=== PATIENT | male | born 1930 | race African-American/Black ===

== ENCOUNTER 2017-10-13 15:02 | Inpatient (IN) | payer MEDICARE, OTHER ==
[~2017-10-13] VITALS: Ht 180.3 cm; Wt 49.4 kg
[~2017-10-13 15:02] MED LIST: DIGO250T4 PO; WARF2TAB57 PO
[2017-10-13 16:10] LABS: BASOPHILS % 0.5 % (0.0-2.0); EOSINOPHILS % 0.5 % (0.0-5.0); HEMATOCRIT. 33.6 % (42.0-52.0); HEMOGLOBIN. 11.4 g/dL (14.0-18.0); MEAN CORPUSCULAR HEMOGLOBIN 26.8 pg (28.0-32.0); MEAN CORPUSCULAR VOLUME 79.1 fL (80.0-94.0); MEAN PLATELET VOLUME 7.1 fl (7.4-10.4); PLATELET 323 x1000/uL (130-400); RED BLOOD CELL COUNT 4.25 mill/uL (4.7-6.1); RED CELL DISTRIBUTION WIDTH 15.4 % (11.6-14.6)
[2017-10-13 16:21] LABS: INR 1.1; PROTHROMBIN TIME 11.7 sec (9.4-11.6)
[2017-10-13 16:27] LABS: CARBON DIOXIDE 26 mEq/L (21-32); CHLORIDE 103 mEq/L (98-107); TROPONIN I 0.08 ng/mL (0.00-0.04)
[2017-10-13 16:29] LABS: D-DIMER 10.25 mg/L FEU (<0.50)
[2017-10-13 17:12] LABS: BG BASE EXCESS -2.8 mmol/L (-2.0-2.0); BG CARBOXYHEMOGLOBIN 0.3 % (0.5-1.5); BG FRACTION INSPIRED OXYGEN 21; BG HCO3 ACT 20.7 mmol/L (22.0-26.0); BG METHEMOGLOBIN 0.2 % (0.0-1.5); BG OXYHEMOGLOBIN 96.5 % (94.0-97.0); BG PCO2 31.6 mmHg (35.0-45.0); BG PH 7.435 (7.350-7.450); BG PO2 93.5 mmHg (75.0-100.0); BG SAMPLE SITE RIGHT RADIAL; BG TOTAL HEMOGLOBIN 10.5 g/dL (12.0-18.0); BG VENT MODE ROOM AIR
[2017-10-13] MEDS ORDERED: ASPIRIN 325MG TABLET PO ONE (19:30)
[2017-10-13] MEDS ORDERED: DILTIAZEM HCL 5MG/ML 5ML VIAL IV ONE (20:30)
[2017-10-13] MEDS ORDERED: ACETAMINOPHEN 325MG TABLET PO PRN (21:00)
[2017-10-13] MEDS ORDERED: MORPHINE SULFATE 2 MG/ML CPJ (NOT FOR IM USE) IV PRN (21:00)
[2017-10-13] MEDS ORDERED: CLONIDINE 0.1MG TABLET PO PRN (21:00)
[2017-10-13] MEDS ORDERED: NA PHOS,M-B/NA PHOS,DI-BA ENEMA 118ML PR PRN (21:00)
[2017-10-13] MEDS ORDERED: MAGNESIUM/ALUMINUM HYDROXIDE/SIMETHICONE 30ML UDC PO PRN (21:00)
[2017-10-13] MEDS ORDERED: ONDANSETRON HCL 4MG/2ML VIAL IV PRN (21:00)
[2017-10-13] MEDS ORDERED: IPRATROPIUM/ALBUTEROL 0.5-3(2.5)MG/3ML NEB INH PRN (21:00)
[2017-10-13] MEDS ORDERED: ENOXAPARIN 40MG/0.4ML SYR SUBCUT SCH (21:00)
[2017-10-13] MEDS ORDERED: NITROGLYCERIN 0.4MG TABLET SL SL PRN (21:00)
[2017-10-13] MEDS ORDERED: TRAMADOL 50MG TABLET PO PRN (21:00)
[2017-10-13] MEDS ORDERED: DOCUSATE SODIUM 100MG CAPSULE PO PRN (21:00)
[2017-10-13] MEDS: ENOXAPARIN 80MG/0.8ML SYR SUBCUT SCH (23:32)
[2017-10-13] MEDS: ZOLPIDEM TARTRATE 5MG TABLET PO PRN (23:33)
[2017-10-13] MEDS: DILTIAZEM HCL 60MG TABLET PO SCH (23:33)
[2017-10-13] MEDS: FAMOTIDINE 20MG/2ML VIAL IV SCH (23:33)
[2017-10-13] MEDS: GUAIFENESIN 200MG/10ML SUGAR FREE UDC PO PRN (23:40)
[2017-10-14 00:23] VITALS: BP 122/88
[2017-10-14 01:36] LABS: CREATINE KINASE MB FRACTION 4.1 ng/mL (0.5-3.6); TROPONIN I 0.07 ng/mL (0.00-0.04)
[2017-10-14 04:00] VITALS: BP 116/81
[2017-10-14] MEDS: DILTIAZEM HCL 60MG TABLET PO SCH ×4 (06:26→23:43)
[2017-10-14 07:35] LABS: CREATINE KINASE MB FRACTION 4.1 ng/mL (0.5-3.6); TROPONIN I 0.09 ng/mL (0.00-0.04)
[2017-10-14 08:00] VITALS: BP 113/74
[2017-10-14] MEDS: FAMOTIDINE 20MG/2ML VIAL IV SCH (09:06)
[2017-10-14] MEDS: ASPIRIN 325MG EC TABLET PO SCH (09:07)
[2017-10-14 12:00] VITALS: BP 113/74
[2017-10-14 16:00] VITALS: BP 108/69
[2017-10-14] MEDS ORDERED: DIGOXIN 125MCG TABLET PO SCH (18:00)
[2017-10-14 20:00] VITALS: BP 112/73
[2017-10-14] MEDS: ENOXAPARIN 80MG/0.8ML SYR SUBCUT SCH (23:42)
[2017-10-14] MEDS: ZOLPIDEM TARTRATE 5MG TABLET PO PRN (23:43)
[2017-10-15] VITALS (7 sets, daily range): BP systolic 90–149; BP diastolic 53–87
[2017-10-15] MEDS: DIPHENHYDRAMINE 50MG/ML VIAL IV PRN ×2 (02:04→22:04)
[2017-10-15] MEDS: DILTIAZEM HCL 60MG TABLET PO SCH ×2 (06:31→12:00)
[2017-10-15 06:47] LABS: BASOPHILS % 0.4 % (0.0-2.0); EOSINOPHILS % 0.8 % (0.0-5.0); HEMATOCRIT. 29.4 % (42.0-52.0); HEMOGLOBIN. 9.8 g/dL (14.0-18.0); LYMPHOCYTES % 18.3 % (20.0-50.0); MEAN CORPUSCULAR HEMOGLOBIN 26.1 pg (28.0-32.0); MEAN CORPUSCULAR VOLUME 78.2 fL (80.0-94.0); MEAN PLATELET VOLUME 7.3 fl (7.4-10.4); MONOCYTES % 9.1 % (2.0-8.0); NEUTROPHILS % 71.4 % (40.0-76.0); PLATELET 333 x1000/uL (130-400); RED BLOOD CELL COUNT 3.76 mill/uL (4.7-6.1); RED CELL DISTRIBUTION WIDTH 15.2 % (11.6-14.6)
[2017-10-15 08:11] LABS: TROPONIN I 0.06 ng/mL (0.00-0.04)
[2017-10-15] MEDS: ASPIRIN 325MG EC TABLET PO SCH (09:26)
[2017-10-15] MEDS: FAMOTIDINE 20MG/2ML VIAL IV SCH (09:26)
[2017-10-15] MEDS: DILTIAZEM HCL 30MG TABLET PO SCH ×2 (16:00→22:06)
[2017-10-15] MEDS: ENOXAPARIN 80MG/0.8ML SYR SUBCUT SCH (22:06)
[2017-10-15] MEDS: GUAIFENESIN 200MG/10ML SUGAR FREE UDC PO PRN (22:10)
[2017-10-16] VITALS: BP 132/77
[2017-10-16 04:00] VITALS: BP 142/78
[2017-10-16] MEDS: DILTIAZEM HCL 30MG TABLET PO SCH (06:31)
[2017-10-16 07:51] LABS: BASOPHILS % 0.4 % (0.0-2.0); EOSINOPHILS % 1.1 % (0.0-5.0); HEMATOCRIT. 28.6 % (42.0-52.0); HEMOGLOBIN. 9.6 g/dL (14.0-18.0); LYMPHOCYTES % 20.8 % (20.0-50.0); MEAN CORPUSCULAR HEMOGLOBIN 26.5 pg (28.0-32.0); MEAN CORPUSCULAR VOLUME 78.8 fL (80.0-94.0); MEAN PLATELET VOLUME 7.8 fl (7.4-10.4); MONOCYTES % 9.1 % (2.0-8.0); NEUTROPHILS % 68.6 % (40.0-76.0); PLATELET 347 x1000/uL (130-400); RED BLOOD CELL COUNT 3.63 mill/uL (4.7-6.1); RED CELL DISTRIBUTION WIDTH 15.6 % (11.6-14.6)
[2017-10-16 08:00] VITALS: BP 117/75
[2017-10-16] MEDS: FAMOTIDINE 20MG/2ML VIAL IV SCH (08:55)
[2017-10-16] MEDS: ASPIRIN 325MG EC TABLET PO SCH (08:55)
[2017-10-16 12:00] VITALS: BP 120/68
[2017-10-16] MEDS: DILTIAZEM HCL 60MG TABLET PO SCH ×2 (14:38→22:51)
[2017-10-16 16:00] VITALS: BP 118/66
[2017-10-16] MEDS: DIPHENHYDRAMINE 50MG/ML VIAL IV PRN (17:03)
[2017-10-16 20:00] VITALS: BP 116/61
[2017-10-16] MEDS: ENOXAPARIN 80MG/0.8ML SYR SUBCUT SCH (22:52)
[2017-10-17] VITALS: BP 131/72
[2017-10-17 04:00] VITALS: BP 100/63
[2017-10-17] MEDS: DILTIAZEM HCL 60MG TABLET PO SCH ×2 (06:00→14:29)
[2017-10-17 08:00] VITALS: BP 151/73
[2017-10-17] MEDS: FAMOTIDINE 20MG/2ML VIAL IV SCH (09:37)
[2017-10-17] MEDS: ASPIRIN 325MG EC TABLET PO SCH (09:37)
[2017-10-17 14:30] VITALS: BP 124/80
== END 2017-10-17 17:15 | DRG 308 ==
LOC: ER 15:57 → 6WST 19:54 → ENRESERV 21:17
PROVIDERS: ADMIT Internal Medicine; ATTEND Internal Medicine
DX: I48.91 Unspecified atrial fibrillation (principal); N17.0 Acute kidney failure with tubular necrosis; E44.0 Moderate protein-calorie malnutrition; C61 Malignant neoplasm of prostate; D63.8 Anemia in other chronic diseases classified elsewhere; H91.10 Presbycusis, unspecified ear; Z68.1 Body mass index [BMI] 19.9 or less, adult; I13.10 Hypertensive heart and chronic kidney disease without heart failure, with stage 1 through stage 4 chronic kidney disease, or unspecified chronic kidney disease; I48.2 Chronic atrial fibrillation; J44.9 Chronic obstructive pulmonary disease, unspecified; I71.4 Abdominal aortic aneurysm, without rupture; I20.9 Angina pectoris, unspecified; I73.9 Peripheral vascular disease, unspecified; N18.9 Chronic kidney disease, unspecified; Z87.891 Personal history of nicotine dependence; Z91.81 History of falling
CPT/HCPCS: 36415; 36600; 71010; 80048; 80053; 80162; 82375; 82550; 82553; 82805; 83605; 83735; 83880; 84443; 84484; 85025; 85379; 85610; 85730; 87040; 93005; 93970; 96374; 96375; 97116; 97162; 97166; 97530; 99285; J1200; J1650; J3490

== ENCOUNTER 2017-12-05 23:40 | Emergency (ER) | payer MEDICARE, OTHER ==
[~2017-12-05] VITALS: Ht 175.3 cm; Wt 68.0 kg
[~2017-12-05 23:40] MED LIST changes: +BUPR150T9 PO; +DIGO125T4 PO; -DIGO250T4 PO; +GABA-531 PO; +TOLT4CAP PO; -WARF2TAB57 PO; +WARF5TAB73 PO
[2017-12-06] MEDS ORDERED: TETANUS, DIPHTHERIA, PERTUSSIS VAC/PF 0.5ML (>7YR OLD) IM ONE (00:30)
[2017-12-06 01:01] LABS: HEMATOCRIT 30.6 % (42.0-52.0); HEMOGLOBIN 10.3 g/dL (14.0-18.0); MEAN CORPUSCULAR HEMOGLOBIN 27.6 pg (28.0-32.0); MEAN CORPUSCULAR VOLUME 81.9 fL (80.0-94.0); PLATELET 314 x1000/uL (130-400); RED BLOOD CELL COUNT 3.74 mill/uL (4.7-6.1); RED CELL DISTRIBUTION WIDTH 17.1 % (11.6-14.6)
[2017-12-06 01:04] LABS: CHLORIDE 106 mEq/L (98-107)
[2017-12-06 01:08] LABS: INR 1.1; PARTIAL THROMBOPLASTIN TIME 32.6 sec (23.4-31.0); PROTHROMBIN TIME 11.4 sec (9.4-11.6)
[2017-12-06 01:12] LABS: CARBON DIOXIDE 29 mEq/L (21-32)
[2017-12-06 02:31] VITALS: BP 133/83
== END 2017-12-06 02:42 | disposition home or self-care (01) ==
LOC: ER 23:40
DX: S06.0X0A Concussion without loss of consciousness, initial encounter (principal); S01.81XA Laceration without foreign body of other part of head, initial encounter; I48.91 Unspecified atrial fibrillation; J44.9 Chronic obstructive pulmonary disease, unspecified; F02.80 Dementia in other diseases classified elsewhere, unspecified severity, without behavioral disturbance, psychotic disturbance, mood disturbance, and anxiety; I10 Essential (primary) hypertension; G30.9 Alzheimer's disease, unspecified; F17.200 Nicotine dependence, unspecified, uncomplicated; Z79.01 Long term (current) use of anticoagulants; Z88.0 Allergy status to penicillin; W18.39XA Other fall on same level, initial encounter; Y93.89 Activity, other specified; Y92.89 Other specified places as the place of occurrence of the external cause; Y99.8 Other external cause status
CPT/HCPCS: 36415; 70450; 70486; 71045; 72125; 72170; 80053; 85027; 85610; 85730; 86850; 86900; 90471; 90715; 99285